=== PATIENT | female | born 1990 | race Caucasian/White ===

== ENCOUNTER 2022-12-05 23:11 | Emergency (ER) | payer SELFPAY ==
[2022-12-05 23:20] VITALS: PULSE 92; RESP 16; TEMP 36.4; O2SAT 99; BMI 22.8
--- NOTE | 2022-12-05 23:32 | ED_ITS ---
HPI - Eye Problem General: Chief complaint: Eye Problems Stated complaint: right eye pain Time Seen by Provider: 12/05/22 23:26 History of Present Illness: 32-year-old female comes in today for complaints of right eye discomfort. Patient reports that she was mowing the lawn today when it felt like something might of went into her eye. After some time patient thought it might have been her contact and had taken her contacts out. Since then patient has had continued pain and discomfort to the right eye. Patient also has a foreign body sensation. Associated symptoms: Reports headache(s); Denies vomiting Review of Systems General: Reports: 10 or more systems reviewed and unremarkable except in HPI and below Eyes: Reports: eye discomfort and eye discharge ENMT: Denies: throat pain Card: Denies: chest pain Resp: Denies: dyspnea GI: Denies: vomiting : Denies: difficulty voiding Musc: Denies: back pain Skin/Breast: Denies: rash Neuro: Reports: headache(s) [facility] ED PFSH: Social History (Updated 06/23/19 @ 12:32 by Cesar Lindsay LPN) Smoking and tobacco status: current every day smoker cigarettes Packs smoked per day: 1 Years cigarettes smoked: 18 Quit status (tobacco): not considering quitting Second hand smoke exposure: Yes Smoking risk assessment/counseling performed?: Yes Tobacco counseling given: counseling >3 minutes Physical Exam Const: COMMON NORMALS: alert HENMT: COMMON NORMALS: normocephalic HEAD & SCALP: normocephalic MOUTH: Normal oral and palatal mucosa present Eye: EYELID: eyelid abnormality right upper eyelid erythema and swelling and right lower eyelid erythema and swelling CONJUNCTIVA: Yes conjunctival abnormal positive right conjunctival injection CORNEA: Yes fluorescein used (Central small 2 mm circular abrasion or ulcer) EYE IMAGES: 1. 2 mm Resp: COMMON NORMALS: normal respiratory effort EFFORT & INSPECTION: Yes able to speak in complete sentences Cardio: COMMON NORMALS: regular rate RATE: regular rate GI: COMMON NORMALS: non-tender Back/Pelvis: COMMON NORMALS: thoracic and lumbar spine normal to inspection Extremity: COMMON NORMALS: full ROM Neuro: SENSORIUM/ORIENTATION: Yes alert Skin: COMMON NORMALS: turgor normal GENERAL SKIN EXAM: turgor normal Course Vital Signs: Vital signs: Vital Signs Temperature 97.6 F 12/05/22 23:20 Pulse Rate 92 12/05/22 23:20 Respiratory Rate 16 12/05/22 23:20 Pulse Oximetry 99 12/05/22 23:20 MDM - Eye Problem Medical Decision Making 32-year-old female comes in today with a pain and discomfort to the right eye after mowing. Patient believed at first that she might of got something in her eye. Patient does wear contacts and had removed the contact but continued to have pain and discomfort throughout the day. On exam patient has some mild injection of the conjunctiva and mild swelling and redness to right eyelids. Under fluorescein staining it was noted patient has a 1 to 2 mm small abrasion to the central right eye. Differential diagnosis includes ulceration, iritis, abrasion. Reviewed exam with patient with recommendations for treatment and fol low-up. Patient reported understanding and agreed to plan. Discharge Plan Discharge Patient Disposition: Home Clinical Impression: Corneal abrasion Qualifiers: Encounter type: initial encounter Laterality: right Qualified Code(s): S05.01XA - Injury of conjunctiva and corneal abrasion without foreign body, right eye, initial encounter Condition: Stable Prescriptions: No Action duloxetine [Cymbalta] 30 mg capsule,delayed release(DR/EC) 30 mg PO DAILY Qty: 30 2RF trazodone 50 mg tablet 100 mg PO .HS Qty: 60 2RF Discharge Orders: Discharge ED (Routine); Ordered 12/06/22 Ordered By: Balbir Walker Discharge Diet: Usual diet Discharge Activity: Increase activity as tolerated Patient Instructions: Corneal Abrasion (ED) Activity Restrictions/Additional Instructions: Do not use contacts to the affected eye for 1 week. Use antibiotic eyedrops 2 drops to the affected eye 4 times a day for 7 days. You may use the tetracaine, pain eyedrops 1 drop to the affected eye every 2 hours as needed for pain. Use acetaminophen and ibuprofen for further pain relief. Follow-up with primary care, or eye critical care educator in 2 to 3 days for recheck. Return to ER for new concerns. Coding Level of Care Code ED Youth Care Professional for Briana Valero
[2022-12-06] MEDS: tobramycin-dexametha Op Susp 5 mL Btl 2 DROP EYE-RIGHT (00:05)
[2022-12-06] MEDS: eye irrigation 30 mL Btl EYE-RIGHT (00:05)
[2022-12-06] MEDS: fluorescein 1 mg Strip EYE-RIGHT (00:05)
[2022-12-06] MEDS: tetracaine 0.5% Op Soln 4 mL Btl 1 DROP EYE-RIGHT (00:05)
[2022-12-06] MEDS: HYDROcodone-acetaminophen 7.5-325 mg Tablet 1 TAB PO (00:33)
[2022-12-06 00:35] VITALS: PULSE 92; RESP 16; TEMP 36.4; O2SAT 99
== END 2022-12-06 00:36 | disposition home or self-care (01) ==
PROVIDERS: Emergency Provider Nurse Practitioner Family
DX: S05.01XA Injury of conjunctiva and corneal abrasion without foreign body, right eye, initial encounter (principal); F17.210 Nicotine dependence, cigarettes, uncomplicated; Z79.899 Other long term (current) drug therapy; X58.XXXA Exposure to other specified factors, initial encounter
CPT/HCPCS: 99283